=== PATIENT | male | born 1980 | race Caucasian/White ===

== ENCOUNTER 2019-11-29 18:45 | Emergency (ER) | payer OTHER ==
[~2019-11-29] VITALS: Ht 182.9 cm; Wt 87.1 kg
== END 2019-11-29 20:52 | disposition home or self-care (01) ==
LOC: ER 18:45
DX: J11.1 Influenza due to unidentified influenza virus with other respiratory manifestations (principal)

== ENCOUNTER 2022-12-21 08:29 | Emergency (ER) | payer OTHER ==
[~2022-12-21] VITALS: Ht 182.9 cm; Wt 88.9 kg
== END 2022-12-21 13:27 | disposition home or self-care (01) ==
LOC: ER 08:29
DX: J40 Bronchitis, not specified as acute or chronic (principal); Z20.822 Contact with and (suspected) exposure to COVID-19

== ENCOUNTER 2023-04-17 16:25 | Emergency (ER) | payer OTHER ==
[~2023-04-17] VITALS: Ht 182.9 cm; Wt 85.3 kg
[2023-04-17] MEDS ORDERED: MEDROLPACK PO (18:44)
[2023-04-17] MEDS ORDERED: BENADRYL ALLERG25 MG PO (18:44)
== END 2023-04-17 19:20 | disposition home or self-care (01) ==
LOC: ER 16:25
DX: T78.49XA Other allergy, initial encounter (principal); X58.XXXA Exposure to other specified factors, initial encounter

== ENCOUNTER 2023-07-20 06:22 | Emergency (ER) | payer OTHER ==
[~2023-07-20] VITALS: Ht 182.9 cm; Wt 84.4 kg
[~2023-07-20 06:22] MED LIST: BENADRYL ALLERG25 MG PO; MEDROLPACK PO
[2023-07-20 09:08] LABS: HEMATOCRIT 43.4 % (39.0-48.0); HEMOGLOBIN 15.2 g/dL (13-16.00); MEAN CELL VOLUME 87.6 fL (80.0-100.00); MEAN CORPUSCULAR HEMOGLOBIN 30.6 pg (27.00-32.0); MEAN CORPUSCULAR HGB CONC 34.9 g/dl (32.0-36.0); PLATELET COUNT 148 K/uL (150-450); RED BLOOD COUNT 4.96 M/uL (4.00-6.00); RED CELL DISTRIBUTION WIDTH 12.9 % (11.5-14.5)
[2023-07-20 09:41] LABS: CALCIUM 8.5 mg/dL (8.5-10.1); CREATININE SERUM 1.22 mg/dL (0.70-1.30); GFR 65.46; POTASSIUM 3.99 mEq/L (3.5-5.1)
[2023-07-20 09:44] LABS: URINE APPEARANCE Clear; URINE BILIRRUBIN Negative (NEGATIVE); URINE BLOOD Negative; URINE COLOR Yellow; URINE GLUCOSE Negative (NEGATIVE); URINE LEUKOCYTE Negative; URINE NITRATE Negative; URINE PROTEIN Negative (NEGATIVE); URINE UROBILINOGEN 0.2 E.U./dl
[2023-07-20 09:49] LABS: URINE BACTERIA 2.5 uL (0.0-1933); URINE EPITHELIAL CELLS 0.9 uL (0.0-38.8); URINE WBC 1.3 uL (0.0-23.2)
== END 2023-07-20 10:15 | disposition home or self-care (01) ==
LOC: ER 06:22
PROVIDERS: General Practice
DX: A90 Dengue fever [classical dengue] (principal); Z91.09 Other allergy status, other than to drugs and biological substances